=== PATIENT | female | born 1965 | race Caucasian/White ===

== ENCOUNTER 2017-06-13 12:52 | Outpatient (CLI) | payer BC ==
[2017-06-13 18:34] LABS: BASOPHILS % (AUTO) 1.1 %; EOSINOPHILS # (AUTO) 0.1 10^3/uL (0.0-0.7); EOSINOPHILS % (AUTO) 1.4 %; HCT - HEMATOCRIT 39.6 % (37.0-47.0); HGB - HEMOGLOBIN 13.2 g/dL (12.0-16.0); LYMPHOCYTES # (AUTO) 1.7 10^3/uL (1.5-3.5); LYMPHOCYTES % (AUTO) 39.7 %; MEAN CORPUSCULAR HEMOGLOBIN 29.5 pg (27.0-31.0); MEAN CORPUSCULAR HGB CONC 33.3 g/dL (32.0-36.0); MEAN CORPUSCULAR VOLUME 88.5 fL (81.0-99.0); MEAN PLATELET VOLUME 8.3 fL (7.9-10.8); MONOCYTES # (AUTO) 0.5 10^3/uL (0.0-1.0); NEUTROPHILS % (AUTO) 45.8 %; NUCLEATED RED BLOOD CELLS AUTO 0.1 /100WBC; RED BLOOD COUNT 4.48 10^6/uL (4.20-5.40); RED CELL DISTRIBUTION WIDTH 13.5 % (12.0-15.0); UNCORRECTED WHITE BLOOD COUNT 4.4 x10^3/uL; WHITE BLOOD COUNT 4.4 x10^3/uL (4.8-10.8)
[2017-06-13 18:52] LABS: ALBUMIN/GLOBULIN RATIO 1.6 (1.0-2.2); BILIRUBIN,TOTAL 0.7 mg/dL (0.2-1.0); BUN - BLOOD UREA NITROGEN 11 mg/dL (6-20); CALCIUM 9.1 mg/dL (8.5-10.3); CARBON DIOXIDE - CO2 25 mmol/L (21-32); CHLORIDE 105 mmol/L (101-111); CHOL/HDL RATIO 2.3 (<4.4); CHOLESTEROL 156 mg/dL; CREATININE 0.7 mg/dL (0.4-1.0); GFR - MDRD 89 (>89); GLUCOSE 87 mg/dL (70-100); HDL CHOLESTEROL 67 mg/dL; POTASSIUM 4.1 mmol/L (3.5-5.0); SODIUM 137 mmol/L (135-145); TOTAL PROTEIN 6.7 g/dL (6.7-8.2); TRIGLYCERIDES 28 mg/dL
[2017-06-13 19:07] LABS: FERRITIN 9.1 ng/mL (11.0-306.8)
[2017-06-13 19:11] LABS: LDL CHOLESTEROL,DIRECT 79 mg/dL
[2017-06-13 19:20] LABS: THYROID STIMULATING HORMONE 1.94 uIU/mL (0.34-5.60)
[2017-06-17 06:21] LABS: T3 REVERSE 19 ng/dL (8-25)
== END 2017-06-13 12:53 | disposition home or self-care (01) ==
LOC: LAB.F 12:52
PROVIDERS: ATTEND Nurse Practitioner Family
DX: Z00.00 Encounter for general adult medical examination without abnormal findings (principal); E55.9 Vitamin D deficiency, unspecified; E78.5 Hyperlipidemia, unspecified; L65.9 Nonscarring hair loss, unspecified
CPT/HCPCS: 36415; 80053; 80061; 82306; 82728; 84436; 84439; 84443; 84481; 84482; 85025; 86376

== ENCOUNTER 2017-07-02 11:01 | Outpatient (CLI) | payer BC ==
[2017-07-02 19:17] LABS: PROLACTIN 16.21 ng/mL
[2017-07-02 19:40] LABS: FOLLICLE STIMULATING HORMONE 30.48 mIU/mL
[2017-07-02 19:41] LABS: LUTEINIZING HORMONE 14.83 mIU/mL
[2017-07-04 14:10] LABS: ANA SCREEN NEGATIVE (NEGATIVE)
[2017-07-05 18:26] LABS: TEST RESULT REPORT (())
== END 2017-07-02 11:02 | disposition home or self-care (01) ==
LOC: LAB.F 11:01
PROVIDERS: ATTEND Nurse Practitioner Family
DX: L63.9 Alopecia areata, unspecified (principal)
CPT/HCPCS: 36415; 81599; 82157; 82627; 83001; 83002; 83540; 84146; 84270; 84402; 84403; 84466; 86038; 86141; 86430